=== PATIENT | male | born 1960 | race Caucasian/White ===

== ENCOUNTER → 2020-12-17 | Outpatient (CLI) | payer OTHER ==
--- NOTE | 2020-12-18 04:17 | MR ---
EXAMINATION TYPE: MR thoracic spine wo con DATE OF EXAM: 12/17/2020 COMPARISON: None HISTORY: T12 Compression Fx, ordered as thoraco lumbar t9-l2 Multiplanar multiecho imaging of the thoracic spine was performed without contrast. Exam also include s the lumbar spine. Fairly normal alignment. There is 25% depression of the superior endplate of T12 vertebral body. The T2 images show slight increased signal in the superior aspect of T12 vertebral body. This is consiste nt with mild edema. I see no focal bone destruction. There is no thoracic paraspinal mass. There is some degenerative dis c space narrowing from L3 to S1 in the lumbar spine. There is posterior moderate disc herniation at L 4-5. This extends to the left side. There is developmentally adequate spinal canal and no significant impingement on the lumbar nerve roots. Thoracic spinal cord has fairly normal signal pattern. There is no edema. IMPRESSION: Compression fracture of T12 without evidence of underlying pathologic abnormality. Posterior left side L4-5 lumbar disc herniation. No spinal stenosis.
== END | disposition home or self-care (01) ==
LOC: RADMRIMAIN 07:40 → MERGE 08:15
PROVIDERS: ATTEND Orthopaedic Surgery
DX: M51.26 Other intervertebral disc displacement, lumbar region (principal); S22.080A Wedge compression fracture of T11-T12 vertebra, initial encounter for closed fracture
CPT/HCPCS: 72146

== ENCOUNTER → 2021-02-25 | Outpatient (CLI) | payer OTHER ==
--- NOTE | 2021-02-25 10:10 | CT ---
EXAMINATION TYPE: CT thor lumbar spine wo con DATE OF EXAM: 02/25/2021 COMPARISON: Prior CT 11/10/2020, MR thoracic spine 12/17/2020, plain film 01/01/2021 HISTORY: T11-T12 burst fracture CT DLP: 1179.6 mGycm Automated exposure control for dose reduction was used. Helical imaging obtained through the lower th oracic, lumbar spine. FINDINGS: Superior endplate depression at T12 is again noted and shows a stable appearance. Mild retropulsion o f the superior endplate is again noted of approximately 4 to 5 mm. Loss of superior vertebral body he ight of approximately 25% is again noted, there is vacuum phenomenon at T11-12. No interval change is noted. Remaining thoracic and lumbar vertebral bodies show a stable appearance, disc spaces are maintained. There is mild multilevel spondylosis similar to previous exams. Degenera tive disc changes are also present in the cervical spine. Degenerative disc changes are again noted in the lumbar spine. Lumbar vertebral bodies show multileve l spondylosis. Loss of disc height present especially at L2-3, L3-4 and L4-5, L5-S1. Lucency present posterior to the superior endplate of L4, superior endplate of L5 may represent vacuum phenomenon, po sterior disc herniation present L4-5 causes some effacement of anterior thecal sac, similar to prior exam. Posterior extension endplate disc complex L5-S1 contacts the anterior thecal sac and possibly p roximal S1 nerve root on the right. Circumference of posterior disc bulge L3-4 causes anterior mass e ffect on the thecal sac. Posterior extension endplate disc complex L2-3 causes anterior mass effect o n the thecal sac, no evident significant spinal stenosis. Circumferential extension endplate disc com plex causes some foraminal encroachment greatest at L5-S1 on the right greater than left, possibly L4 -5 at the inferior margins of the foramina. IMPRESSION: STABLE EXAM. SUPERIOR ENDPLATE FRACTURE T12 SHOWS A STABLE APPEARANCE. Degenerative disc disease as d escribed L5-S1, greatest at L4-5 and to lesser extent L2-3, L3-4.
== END | disposition home or self-care (01) ==
LOC: RADCTMAIN 07:20
PROVIDERS: ATTEND Orthopaedic Surgery
DX: S22.081A Stable burst fracture of T11-T12 vertebra, initial encounter for closed fracture (principal); M51.37 Other intervertebral disc degeneration, lumbosacral region
CPT/HCPCS: 72128; 72131